=== PATIENT | male | born 1965 | race Caucasian/White ===

== ENCOUNTER 2017-10-15 14:17 | Inpatient (IN) ==
[2017-10-15] MEDS ORDERED: METHOCARBAMOL 1,000 MG/10 ML VIAL IV ONE (14:27)
[2017-10-15] MEDS ORDERED: KETOROLAC 30 MG/ML VIAL IV ONE (14:27)
[2017-10-15] MEDS ORDERED: MEPERIDINE 25 MG/ML SYRINGE IV ONE (15:21)
--- NOTE | 2017-10-15 15:21 | Emergency Department Note ---
Back Pain HPI - General Chief Complaint: Back Pain/Injury Stated Complaint: back pain no injury Time Seen by Provider: 10/15/17 14:27 Source: patient - History of Present Illness HPI Narrative: 52-year-old male presents with severe low back pain. Onset is chronic however much worse since yesterday. He has had multiple back surgeries in the past and deals with chronic pain. However states he is never had this severe of pain. The pain radiates down his right leg. He also on occasion feels a little bit of tingling down his right leg but states it is mostly just pain. No incontinence or bowel or bladder. No change in bowel or bladder. No saddle paresthesia. No fever chills. No nausea, vomiting, or diarrhea. He denies any fall, trauma, or injury. States yesterday he sat and watched all day long and then did some pressure washing when he got home and he thinks he overdid it. This morning when he got up his pain was severe but he went to work and now cannot walk or function whatsoever at work so they called the ambulance. He did receive 100 mcgs of fentanyl in the field which provided him extremely minimal pain relief. States on occasion standing seems to relieve this a little bit of his pain possibly but if he moves the wrong way or tries to lift the right leg his pain is severe. His last surgery was in [address] Roman. He has known bulging disks since then. - Related Data Home Medications Medication Instructions Recorded Confirmed aspirin 81 mg tablet,delayed 81 mg PO QDAY 06/06/15 10/15/17 release multivitamin capsule 1 tab-cap PO QDAY 06/06/15 10/15/17 omega-3 fatty acids-fish oil 360 1 cap PO BID 06/06/15 10/15/17 mg-1,200 mg capsule Gabapentin [Neurontin] 300 mg PO DAILY 10/15/17 10/15/17 Previous Rx's Medication Instructions Recorded fluticasone 50 mcg/actuation nasal 100 mcg INTRANASAL BID #16 g 09/21/16 spray,suspension losartan 50 mg tablet 50 mg PO QDAY #90 tab 09/21/16 omeprazole 20 mg capsule,delayed 20 mg PO .COMPLEX #90 cap 10/07/17 release Hydrocodone/APAP 7.5/325Mg [[place] 1 - 2 tab PO Q6HP PRN #20 tab 10/15/17 7.5-325Mg] Methocarbamol [Robaxin-750] 750 mg PO TID PRN #30 tab 10/15/17 Allergies Allergy/AdvReac Type Severity Reaction Status Date / Time Sulfa (Sulfonamide Allergy Unknown Hives Verified 10/15/17 14:21 Antibiotics) Review of Systems All systems ED: reviewed and negative except as stated. 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 Denies: coronary artery disease, thyroid disease - Social History smoking status: Never smoker Alcohol use: Reports: Occasionally Drug use: Reports: none Physical Exam Limitations: no limitations General appearance: alert, other (Appears in pain) Head: atraumatic, normocephalic, normal inspection Eye: Present: normal appearance. Absent: conjunctival injection ENT: mucous membranes moist Neck: Present: normal inspection, trachea midline. Absent: tenderness, lymphadenopathy Chest: Present: normal inspection, symmetric chest wall rise Respiratory: Present: normal lung sounds bilaterally. Absent: respiratory distress, wheezes, accessory muscle use Cardiovascular: Present: regular rate, normal heart sounds Abdominal: Present: soft, normal bowel sounds. Absent: distention, tenderness, guarding Extremities: Present: normal inspection, normal capillary refill. Absent: full ROM (Limited range of motion of the right lower extremity with), pedal edema Back: Present: vertebral tenderness (Tenderness with palpation midline L1 through L5 as well as over the right sciatic notch), sciatic notch tenderness (R ), straight leg raise (R). Absent: CVA tenderness (R), CVA tenderness (L) Neurological: Present: alert, oriented X3. Absent: motor sensory deficit Psychiatric: Present: normal affect, normal mood Skin: Present: warm, dry, intact, normal color Course Course Narrative: Patient has received multiple doses of various narcotic pain medications, muscle relaxers and steroid with little improvement. We are going to try to discharge him home with some pain medication and muscle relaxers however patient states he actually cannot walk due to the pain and cannot function her go home. I did speak with Dr. Ruiz hospitalist who agrees to admit the patient observation and try and get his pain under control. Vital Signs Temperature 98.3 F 10/15/17 14:18 Pulse Rate 65 10/15/17 14:18 Respiratory Rate 16 10/15/17 14:18 Blood Pressure 144/80 10/15/17 14:18 Pulse Oximetry (%) 94 10/15/17 14:18 Temperature 98.3 F 10/15/17 14:18 Pulse Rate 66 10/15/17 19:04 Respiratory Rate 18 10/15/17 18:04 Blood Pressure 138/76 10/15/17 19:01 Pulse Oximetry (%) 100 10/15/17 19:04 Disposition Pt seen by LINE INSPECTOR/PA only: No Clinical Impression: Exacerbation of chronic back pain Disposition: Xfer As Outpt/Obs ([facility]) Condition: Fair Instructions: Chronic Back Pain (ED) Additional Instructions: A physical therapy prescription has been completed for you. Call physical therapist of your choice and follow-up with him as soon as possible. Take the prescription with you. Robaxin: 1 tab orally every 8 hours as needed for muscle spasm. Hydrocodone: 1 tab orally every 6 hours as needed for pain. Do not drive, operate machinery, or drink alcohol while taking this medication. Alternate heat and ice to the affected area 4-6 times a day for 15 minutes at a time over the next 2 days. Follow-up with your primary care provider or orthopedic provider within the next few days for follow-up. Prescriptions: Hydrocodone/APAP 7.5/325Mg [[place] 7.5-325Mg] 1 - 2 tab PO Q6HP PRN #20 tab PRN Reason: Pain Methocarbamol [Robaxin-750] 750 mg PO TID PRN #30 tab PRN Reason: Muscle Spasm Referrals: Elijah Kirby MD [Primary Care Provider] - Lauro Roman MD [Physician] -
[2017-10-15] MEDS ORDERED: HYDROCODONE/APAP 7.5/325MG TABLET PO ONE ×2 (16:10)
[2017-10-15] MEDS ORDERED: CYCLOBENZAPRINE 10 MG TABLET PO ONE ×2 (16:10→16:11)
[2017-10-15] MEDS: fentaNYL 100 MCG/2 ML VIAL IV PRN ×4 (17:28→23:33)
--- NOTE | 2017-10-15 18:07 | Cat Scan Report ---
CLINICAL INFORMATION: History of L4-5 anterior/posterior fusion chronic back pain COMPARISON: Postoperative lumbar MRI from 08/24/2015 TECHNIQUE: 0.625 mm helical slices were obtained from the mid T12 through mid S2 vertebral bodies. Following reconstruction, 2.5 mm coronal, sagittal, and axial reformations (angle to the disc spaces) were processed. Exam was reviewed at bone and soft tissue windows.The exam was performed using radiation dose optimization techniques including, but not limited to, automated exposure control, adjustment of the mA and/or kV according to patient size and use of iterative reconstruction technique. FINDINGS: 4 mm L4 anterior subluxation is unchanged. L4-5 anterior/posterior fusion changes provided by interbody graft, pedicle screws and short interbody struts with wide laminectomy changes seen as before. Remaining lumbar is anatomically aligned without significant osseous abnormalities. Soft tissues are normal. The T10-11 through L1-2 disc levels are normal. At L2-3, mild broad disc protrusion with facet arthropathy result in mild central canal and bilateral IV foraminal stenosis. At L3-4, moderate broad disc spur complex and facet arthropathy results in mild central canal and moderate bilateral lateral recess/ IV foraminal narrowing slightly impinging the exiting L3 and descending L4 nerve roots. At L4-5 fusion level, there is moderate granulation tissue in the former region of the lamina and in the posterior epidural space. The central canal, lateral recess and IV foramen are normal width. At L5-S1 the disc levels normal IMPRESSION: L3-4: Moderate broad disc protrusion and facet arthropathy resulting in mild central canal and moderate bilateral lateral recess and IV foraminal narrowing with impingement of the exiting L3 descending L4 nerve roots. L4-5: Anterior/posterior fusion changes with 3 mm of residual L4 anterior subluxation. Mild granulation tissue in the former region of the lamina the posterior epidural space. Interpreted and Authenticated by: Azar Robertson 10/15/17
[2017-10-15] MEDS ORDERED: DEXAMETHASONE 10 MG/ML VIAL IV ONE (19:14)
[2017-10-15] MEDS ORDERED: DIAZEPAM 5 MG/ML VIAL ONE (20:53)
[2017-10-15] MEDS ORDERED: DIAZEPAM 5 MG TABLET PO ONE (21:01)
--- NOTE | 2017-10-15 21:28 | Internal Med History&Physical ---
Medical - H&P: HPI Patient information: Note initiated : 10/15/17 at 9:18 pm Service Date, if different from initiated Date: [] Patient: Asa Green a 52 y/o M admitted on for back pain no injury. Chief Complaint: Acute worsening of chronic back pain due to disc herniation with radicular symptoms. History of present illness: Mr. Green is a 52 year old M with history of lumbar spine fusion 2004 with recurrent pain since 2014. He's tried PT, massage, epidural injections, chiropractic, and is followed in the pain clinic. Sustained sitting makes problems worse, sustained walking, the same. Has a road trip coming up, and he drove to [place] 4 days ago as a trial of sort to see if he could manage the trip. 3 days ago he spent the day watching baseball games, a little stiff when he got home, then did yardwork the evening 2 days ago. He woke up feeling tight the next morning, didn't rest particularly well. 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 Any wrong motion evokes a "grabbing" localized pain in his back and sometimes increases the burning down his leg. EMS eventually called and brought him to the ED from work. He denies any bowel or bladder dysfunction, both incontinence and retention. Notes his right leg is worse, feels numb, particularly down buttock and then to the top of his right foot. Notes it often gets that way if he stands for too long as well. Left leg with area of sensory deficit around kneecap. Denies specific motor weakness, but notes hard to tell right now because it hurts too much to move either leg, or even shift his body. He notes that warmth usually more helpful with symptoms than ice. No fevers, no chills. Denies any other symptoms. Review of systems: 1) Evaluation for palpitations about a year ago, found eventually to be due to nortryptilline, subsequently discontinued, no symptoms since. 2) Rash on foot - ? fungal 3) Allergic rhinitis at times 4) GERD, h/o normal EGD. 5) Otherwise, on complete review, all others negative. Medical - H&P: PMH Medical history: Lumbar disc herniation with radiculopathy Hypertension (Chronic) Sinusitis with nasal polyps (Chronic) Migraine (Chronic) Irritable bowel syndrome (Chronic) Hyperlipidemia (Chronic) treated at one time with zetia, now on fish oil and niacin Bronchitis, acute (Resolved) Cholecystitis (Resolved) with gall bladder polyps Surgical history: History of undescended testicle (Chronic) Age 14 testicular torsion - orchiectomy Status post lumbar spinal fusion (Chronic) 2004 25 years after back injury in football - spondylolisthesis History of colonoscopy (Chronic 08/26/14) Dr. Quarles Pertinent family history: Mother alive with COPD and osteoarthritis Father with CAD, paternal grandparents also with CAD Social history: Lives with , 2 children (16 and 20), 2 dogs, 3 cats. Lifelong non-smoker, no alcohol, no recreational drugs, works in [employer]. Functional capacity: independent ambulation Smoking status: Never smoker Drug use: none Alcohol use: none Medical - H&P: Meds Home Medications Medication Instructions Recorded Confirmed Type aspirin 81 mg tablet,delayed 81 mg PO QDAY 06/06/15 10/15/17 History release multivitamin capsule 1 tab-cap PO QDAY 06/06/15 10/15/17 History omega-3 fatty acids-fish oil 360 1 cap PO BID 06/06/15 10/15/17 History mg-1,200 mg capsule fluticasone 50 mcg/actuation nasal 100 mcg INTRANASAL BID #16 g 09/21/16 Rx spray,suspension losartan 50 mg tablet 50 mg PO QDAY #90 tab 09/21/16 10/15/17 Rx omeprazole 20 mg capsule,delayed 20 mg PO .COMPLEX #90 cap 10/07/17 10/15/17 Rx release Gabapentin [Neurontin] 300 mg PO DAILY 10/15/17 10/15/17 History Hydrocodone/APAP 7.5/325Mg [[place] 1 - 2 tab PO Q6HP PRN #20 tab 10/15/17 Rx 7.5-325Mg] Methocarbamol [Robaxin-750] 750 mg PO TID PRN #30 tab 10/15/17 Rx Allergies Allergy/AdvReac Type Severity Reaction Status Date / Time Sulfa (Sulfonamide Allergy Unknown Hives Verified 10/15/17 14:21 Antibiotics) Medical - H&P: Exam - Constitutional Vitals: Temp Pulse Resp BP Pulse Ox 98.3 F 92 H 18 147/95 87 L 10/15/17 14:18 10/15/17 20:46 10/15/17 18:04 10/15/17 20:46 10/15/17 20:46 - Other Additional findings: GENERAL: Clearly uncomfortable with visible distress with any movement of legs or shift in torso. Lying on gurney in ED on back board (which he notes feels better - expresses concern about hospital bed being "too soft") Alert, oriented. Speech coherent, fluent, articulate. Thought content appropriate. Respirations unlabored. Appears quite stoic. HEENT: Atraumatic, normocephalic; EYES: pupils equal and reactive to light, full range of extraocular movements, no scleral icterus, no injected vessels. EARS: TM's pearly brock and translucent, EAC's without cerumen or trauma, auricles without lesions. OROPHARYNX: Lummi dentition with previous restorative dental work. Palate raise symmetric. No posterior erythema. Membranes moist. NECK: Trachea midline, no adenopathy, no JVD, no bruits. LUNGS: Clear to bases bilaterally. COR: Regular rate and rhythm, no murmurs, rubs, gallops. ABDOMEN: Cautious exam as increases discomfort in back. Bowel sounds present and normal, non-distended, soft, non-tender. BACK: Unable to visibly inspect back as pain uncontrolled when he shifts or tries to roll one way or the other. Really unable to attempt to sit. Palpation accomplished with significant muscle spasm right>>left. No defect palpated. Areas of tenderness in lower lumbar area bilaterally. EXTREMITIES: No edema, pulses x4, warm. No palpable cords, no nailbed cyanosis. SKIN: Well marginated areas of erythema and peeling on feet with some scale noted at ankles. Sunburn left ankle, lateral aspect. NEURO: Babinski downgoing. Able to plantar flex and dorsiflex great toe and feet , but unable to fully test strength due to increase in pain with attempts. Straight leg raises did not evoke radicular symptoms or radiation of pain, but did markedly increase pain in lower back. Hamstrings very tight. Could not obtain adequate relaxation to reliably check reflexes. Medical - H&P: Reslt - Imaging and Cardiology CT back Additional comments: READ BY RADIOLOGIST: CLINICAL INFORMATION: History of L4-5 anterior/posterior fusion chronic back pain COMPARISON: Postoperative lumbar MRI from 08/24/2015 TECHNIQUE: 0.625 mm helical slices were obtained from the mid T12 through mid S2 vertebral bodies. Following reconstruction, 2.5 mm coronal, sagittal, and axial reformations (angle to the disc spaces) were processed. Exam was reviewed at bone and soft tissue windows.The exam was performed using radiation dose optimization techniques including, but not limited to, automated exposure control, adjustment of the mA and/or kV according to patient size and use of iterative reconstruction technique. FINDINGS: 4 mm L4 anterior subluxation is unchanged. L4-5 anterior/posterior fusion changes provided by interbody graft, pedicle screws and short interbody struts with wide laminectomy changes seen as before. Remaining lumbar is anatomically aligned without significant osseous abnormalities. Soft tissues are normal. The T10-11 through L1-2 disc levels are normal. At L2-3, mild broad disc protrusion with facet arthropathy result in mild central canal and bilateral IV foraminal stenosis. At L3-4, moderate broad disc spur complex and facet arthropathy results in mild central canal and moderate bilateral lateral recess/ IV foraminal narrowing slightly impinging the exiting L3 and descending L4 nerve roots. At L4-5 fusion level, there is moderate granulation tissue in the former region of the lamina and in the posterior epidural space. The central canal, lateral recess and IV foramen are normal width. At L5-S1 the disc levels normal IMPRESSION: L3-4: Moderate broad disc protrusion and facet arthropathy resulting in mild central canal and moderate bilateral lateral recess and IV foraminal narrowing with impingement of the exiting L3 descending L4 nerve roots. L4-5: Anterior/posterior fusion changes with 3 mm of residual L4 anterior subluxation. Mild granulation tissue in the former region of the lamina the posterior epidural space. Interpreted and Authenticated by: Azar Robertson 10/15/17 Medical - H&P: A/P - Narrative A/P Narrative: 1) Intractable lumbar back pain with muscle spasm, disc herniation, and associated radicular symptoms right > left. He has been given Fentanyl in the ED, but he cannot say that it has worked. States if he lies still, he can be comfortable, he just can't move - and each time he has gotten an injection, it has not helped him be able to move. Neuro exam incomplete due to limitations of pain, will need to repeat when pain better controlled. Muscle spasm is palpable, and his hamstrings are quite tight. He expresses concerns about admission, particularly moving onto a bed, having to undress, and fears of the bed being too soft and that he will wake in more pain. Opted to give IV Valium in the ED to assist with muscle spasm relief before he gets to the floor. Will need PT, continue opioids (also received single dose Toradol in ED), try burst prednisone for the localized edema around nerves and disc, cautiously add valium for muscle spasm. Patient well acquainted with Dr. Roman, will try to reach him in the morning even though he is not [employer]. Continuous pulse ox given opioids and benzodiazepines. 2) Hypertension. Will continue his usual antihypertensives. 3) Tinea pedis. Provide Lotrimin cream. May have some psoriasis as well, but the skin areas I could actually see and evaluate are more consistent with Tinea. 4) h/o GERD - with h/o normal EGD. Has been on PPI for years. Although recommendation is that weaning drug be strongly considered, that process would be best undertaken in the primary care setting; acute hospitalization is not the time. No history of GI bleed. 5) Complication prophylaxis - although at low risk for VTE, unclear how long he will actually be minimally mobile. Will use antiembolic stockings. Continue with PPI for PUD prophylaxis given prednisone burst and chronic PPI use. Plan: Observation - will reevaluate and admit to inpatient if inadequate improvement. Regular diet. PT consult Will phone Dr. Roman in the morning. Fentanyl prn Continuous pulse ox PO Valium for muscle spasm, using with caution given concomitant opioids Warmth to back Prednisone burst - 40 mg daily x 5 days Continue antihypertensives. Lotrimin for tinea pedis GAIL danielson Repeat neuro exam when more relaxed Other problems will be addressed as they arise.
[2017-10-15] MEDS ORDERED: predniSONE 20 MG TABLET PO ONE (21:50)
[2017-10-15] MEDS ORDERED: ONDANSETRON 4 MG/2 ML VIAL IV PRN (21:50)
[2017-10-15] MEDS: 0.9 % SODIUM CHLORIDE 10 ML SYRINGE IV SCH (22:35)
[2017-10-15] MEDS: DOCUSATE SODIUM 100 MG CAPSULE PO SCH (22:58)
[2017-10-16] MEDS: fentaNYL 100 MCG/2 ML VIAL IV PRN ×9 (03:43→21:05)
[2017-10-16] MEDS: 0.9 % SODIUM CHLORIDE 10 ML SYRINGE IV SCH ×4 (03:45→21:05)
[2017-10-16 05:14] LABS: Basophils # (Auto) 0 K/mcL (0.0-0.3); Basophils % (Auto) 0 % (0.0-2.0); Eosinophils # (Auto) 0 K/mcL (0.0-0.7); Eosinophils % (Auto) 0.1 % (0.0-7.0); Granulocytes % (Auto) 92.3 % (38.0-78.0); Lymphocytes # (Auto) 0.3 K/mcL (1.5-4.8); Lymphocytes % (Auto) 6.7 % (15.5-49.0); Mean Cell Volume 89.7 fL (80.0-100.0); Mean Corpuscular HGB Conc 34.8 g/dL (31.0-36.0); Mean Corpuscular Hemoglobin 31.2 pg (26.0-34.0); Monocytes # (Auto) 0 K/mcL (0.1-0.9); Monocytes % (Auto) 0.9 % (1.0-12.0); Platelet Count 180 K/mcL (140-440); Red Cell Distribution Width 12.6 % (11.5-14.5)
[2017-10-16 05:44] LABS: Blood Urea Nitrogen 14 mg/dl (6-20)
[2017-10-16] MEDS: DIAZEPAM 5 MG TABLET PO PRN ×4 (05:54→23:42)
[2017-10-16] MEDS ORDERED: MAGNESIUM SULFATE 8.12 MEQ in DEXTROSE 5% IN WATER 50 ML IV ONE (06:40)
[2017-10-16] MEDS: OMEPRAZOLE 20 MG CAPSULE PO SCH (07:04)
[2017-10-16] MEDS ORDERED: MAGNESIUM SULFATE 1 GM/25 ML IV ONE (07:15)
[2017-10-16] MEDS: GABAPENTIN 300 MG CAPSULE PO SCH (09:07)
[2017-10-16] MEDS: predniSONE 20 MG TABLET PO SCH (09:07)
[2017-10-16] MEDS: DOCUSATE SODIUM 100 MG CAPSULE PO SCH ×2 (09:07→21:05)
[2017-10-16] MEDS: ASPIRIN 81 MG TAB.CHEW PO SCH (09:08)
[2017-10-16] MEDS: LOSARTAN 50 MG TABLET PO SCH (09:08)
[2017-10-16] MEDS ORDERED: HYDROcodone/APAP 10/325MG TABLET PO PRN (10:40)
--- NOTE | 2017-10-16 14:13 | Magnetic Resonance Report ---
CLINICAL INFORMATION: Chronic low back pain and bilateral radiculopathy right greater than left. History of L4-5 anterior/posterior fusion and wide laminectomy COMPARISON: Postoperative lumbar MRI 08/24/2015 TECHNIQUE: Sagittal T1 FLAIR, STIR, fast spin echo T2, axial T2 weighted images were acquired. FINDINGS: L4-5 anterior posterior fusion changes provided by interbody body graft, pedicle screws and short interbody struts appreciated. There is two mm of L4 subluxation - as previously seen. The remainder of the lumbar spine is anatomically aligned. Conus medullaris ends at T12 homogeneous signal. Cauda equina roots are normal. No soft tissue abnormalities. The T11-T12, T12-L1, and L1-2 disc levels are normal. At L2-3, mild broad disc protrusion facet arthropathy results in minimal central canal narrowing. At L3-4, large broad disc extrusion and facet arthropathy result in severe bilateral lateral recess and IV foraminal narrowing with impingement of the exiting L3 and the descending L4 nerve roots. Facet arthropathy results in moderate central canal stenosis. There are Modic 1. Degenerative changes in the inferior L3 and superior L4 endplates. All findings have progressed considerably since the previous study At L4-5 surgerized level, there is modest granulation tissue throughout the epidural space which is similar previous study. The L5-S1 disc level is normal IMPRESSION: L3-4: Large broad disc extrusion and facet arthropathy resulting in severe bilateral IV foraminal and lateral recess narrowing impinging the exiting L3 and descending L4 nerve roots. Moderate central canal stenosis L4-5: Anterior/posterior fusion and wide laminectomy changes. Central canal and IV foramen are capacious. Interpreted and Authenticated by: Azar Robertson 10/16/17
--- NOTE | 2017-10-16 14:23 | Internal Med Progress Note ---
Medical - PN: Subj Patient information: Note initiated : 10/16/17 at 1:49 pm Patient: Asa Green 52 y/o M admitted on 10/15/17 for Intractable Lumbar Back Pain with Muscle Spasm. Interval history: Patient very much wants to go home. He was up with physical therapy, but required one person assist to roll over. Nursing staff reported this AM that he remains in pain, Valium seems to help better than Fentanyl. When I am in the room, he is very cautious with moving, and even with a very modified physical exam he experiences times of profound worsening of spasm. No bowel or bladder issues overnight and the areas of numbness have not changed. He stresses several times how he really wants to go home, but any movement causes severe pain. I discussed with Dr. Roman who requests MR emelia Singh and he will see him later. When I disclosed this to the patient, his was in the room and she concurred that it did not appear he was ready to go home. He did seem relieved that I had been able to reach his spine surgeon. Also noted is an elevation in blood glucose. Patient denies history of previous glucose intolerance or diabetes. Notes no previous problems on steroids. - Constitutional Vitals: Vital Signs Temp Pulse Resp BP Pulse Ox 98.1 F 92 H 12 112/65 94 10/16/17 08:17 10/16/17 08:17 10/16/17 08:17 10/16/17 08:17 10/16/17 08:17 Period Temp Pulse Resp BP Sys/[place] Pulse Ox Last 24 Hr 98.1 F-98.3 F 56-94 12-18 112-156/65-97 87-100 Intake and Output 10/15/17 10/16/17 10/16/17 21:59 05:59 13:59 Intake Total 180 / 180 1075 / 1075 Output Total 200 / 200 Balance -20 / -20 1075 / 1075 Weight 210 lb Intake & Output: Intake & Output 10/15/17 10/16/17 10/16/17 21:59 05:59 13:59 Intake Total 180 / 180 1075 / 1075 Output Total 200 / 200 Balance -20 / -20 1075 / 1075 Weight 210 lb Intake: IV 25 / 25 MAGNESIUM SULFATE 1 gm In 25 ml 25 / 25 @ 25 mls/hr IV ONCE ONE Rx#: [id number] Oral 180 / 180 1050 / 1050 Output: Void Amount 200 / 200 Other: Meal Breakfast Percent of Meal Consumed 100% Feeding Ability Total Assistance # Voids 1 Exam: GENERAL: Continues with obvious discomfort. Any movement is done extremely cautiously and really unable to move of his oblique left side for thorough exam. Clearly uncomfortable with visible distress with any movement of legs or shift in torso. Still on gurney from ED on back board (which he notes feels better - expresses concern about hospital bed being "too soft") Alert, oriented. Speech coherent, fluent, articulate. Thought content appropriate. Respirations unlabored. Appears quite stoic. LUNGS: Clear to bases bilaterally. COR: Regular rate and rhythm, no murmurs, rubs, gallops. ABDOMEN: Nondistended in contour. BACK: He is lying on left side side of back at oblique angle. Tried to turn 15 degrees farther to left for visual inspection and he experienced marked increase in discomfort. On palpation, no bony tenderness noted, and spasm does seem improved on palpation. Unable to do much more as far as exam. Really unable to attempt to sit with my assistance alone. Had been up with PT earlier. Unable to accomplish straight leg raises. EXTREMITIES: No edema, pulses x4, warm. No palpable cords, no nailbed cyanosis. NEURO: Babinski downgoing. Able to plantar flex and dorsiflex great toe and feet , strength intact and equal today. Straight leg raises were not accomplished due to inability to shift onto back. Medical - PN: Obj Da - Labs CBC & Chem 7: 10/16/17 03:45 10/16/17 03:45 Labs: Abnormal Lab Results 10/16/17 10/16/17 03:45 03:45 Gran % 92.3 H Lymph % (Auto) 6.7 L [place] % (Auto) 0.9 L Lymph # (Auto) 0.3 L [place] # (Auto) 0 L Glucose 202 H Meds: Medications Hydrocodone Bitart/Acetaminophen ([place] 10/325mg) 1 tab PO Q4HP PRN PRN Reason: PAIN LEVEL 3-6 Aspirin (Aspirin) 81 mg PO DAILY [facility] Last Admin: 10/16/17 09:08 Dose: 81 mg Diazepam (Valium) 5 mg PO TIDP PRN PRN Reason: Muscle Spasm Last Admin: 10/16/17 11:15 Dose: 5 mg Docusate Sodium (Colace) 100 mg PO BID [facility] Last Admin: 10/16/17 09:07 Dose: 100 mg Fentanyl (Sublimaze) 25 mcg IV Q1HP PRN PRN Reason: Pain uncontrolled with po Last Admin: 10/16/17 12:55 Dose: 25 mcg Fluticasone Propionate (Flonase) 1 spray NS BID [facility] Gabapentin (Neurontin) 300 mg PO DAILY [facility] Last Admin: 10/16/17 09:07 Dose: 300 mg Losartan Potassium (Cozaar) 50 mg PO QDAY [facility] Last Admin: 10/16/17 09:08 Dose: 50 mg Omeprazole (Prilosec) 20 mg PO QAMAC [facility] Last Admin: 10/16/17 07:04 Dose: 20 mg Ondansetron HCl (Zofran) 4 mg IV Q6HP PRN PRN Reason: Nausea And Vomiting [facility] Last Admin: 10/16/17 09:07 Dose: 40 mg Sodium Chloride (Saline Flush) 10 ml IV Q8 [facility] Last Admin: 10/16/17 13:00 Dose: 10 ml - Imaging and cardiology MRI - L spine Additional comments: As read by Dr. Robertson: FINDINGS: L4-5 anterior posterior fusion changes provided by interbody body graft, pedicle screws and short interbody struts appreciated. There is two mm of L4 subluxation - as previously seen. The remainder of the lumbar spine is anatomically aligned. Conus medullaris ends at T12 homogeneous signal. Cauda equina roots are normal. No soft tissue abnormalities. The T11-T12, T12-L1, and L1-2 disc levels are normal. At L2-3, mild broad disc protrusion facet arthropathy results in minimal central canal narrowing. At L3-4, large broad disc extrusion and facet arthropathy result in severe bilateral lateral recess and IV foraminal narrowing with impingement of the exiting L3 and the descending L4 nerve roots. Facet arthropathy results in moderate central canal stenosis. There are Modic 1. Degenerative changes in the inferior L3 and superior L4 endplates. All findings have progressed considerably since the previous study At L4-5 surgerized level, there is modest granulation tissue throughout the epidural space which is similar previous study. The L5-S1 disc level is normal IMPRESSION: L3-4: Large broad disc extrusion and facet arthropathy resulting in severe bilateral IV foraminal and lateral recess narrowing impinging the exiting L3 and descending L4 nerve roots. Moderate central canal stenosis L4-5: Anterior/posterior fusion and wide laminectomy changes. Central canal and IV foramen are capacious. Medical - PN: A/P - Time Spent With Patient Total time spent: discussion with nursing and Dr. Roman 12 minutes, time with patient 15 minutes. - Narrative A/P Narrative: 1) Intractable lumbar back pain with muscle spasm, disc herniation, and associated radicular symptoms right > left. MR with findings L3-4 which are likely responsible for present symptoms. Still very unable to move, and both his and I express a fear that even if he makes it into a car here, he will be unable to get out of the car at home. Will continue Valium, switch to oral opioids, continue PT, await Dr. Roman's advice. Continue prednisone, again explained to patient it does nothing for disc herniation, the expectation is that it may help decrease surrounding edema and inflammation, but sometimes even that is questionable. Will not be going home today, however, after discussion with Dr. Roman, if better, he may be able to discharge in AM - if not, will roll to inpatient and surgical intervention may be a possibility. Dr Roman also added CRP and sed rate to offer further reassurance of no infection. 2) Elevated glucose. Likely secondary to prednisone, however may be unmasking underlying glucose intolerance or undiagnosed diabetes. Will check fingersticks , only cover if greater than 200, obtain Hgb A1C (if this strongly suggests diabetes, will get educator involved.) 2) Hypertension. Will continue his usual antihypertensives. 3) Tinea pedis. Lotrimin ordered. 4) h/o GERD - with h/o normal EGD. Has been on PPI for years. Although recommendation is that weaning drug be strongly considered, that process would be best undertaken in the primary care setting; acute hospitalization is not the time. No history of GI bleed. 5) Complication prophylaxis - although at low risk for VTE, unclear how long he will actually be minimally mobile. Will use antiembolic stockings. Continue with PPI for PUD prophylaxis given prednisone burst and chronic PPI use.
[2017-10-16] MEDS ORDERED: DEXTROSE 31 GM ORAL.SUSP PO PRN (17:14)
[2017-10-16] MEDS ORDERED: DEXTROSE 50% 50 ML VIAL IV PRN (17:14)
[2017-10-16] MEDS: HYDROcodone/APAP 10/325MG TABLET PO PRN ×2 (18:59→23:42)
[2017-10-16 21:09] LABS: Hemoglobin A1C 5.5 % HGB (4.0-6.0)
[2017-10-16] MEDS: INSULIN LISPRO 1 UNIT/0.01 ML UNIT SQ SCH (21:11)
[2017-10-16] MEDS: CLOTRIMAZOLE CRM 1% 1 DOSE TUBE TOPICAL SCH (21:13)
--- NOTE | 2017-10-17 01:05 | Consultation ---
DATE OF CONSULTATION: 10/16/2017 IDENTIFICATION: The patient is a 52-year-old male. CHIEF COMPLAINT: That of intractable back and right lower extremity radicular pain. HISTORY: This gentleman had a previous lumbar fusion in 2004. He has had some ongoing symptoms since 2014 of increased back pain and some right lower extremity radiculopathy. He has managed intermittently with physical therapy, epidural injections, chiropractic, massage, etc. Here over the last week he had developed acute onset of increased back pain and radiculopathy. Saturday he went to work, had several episodes of excruciating grabbing pain across the back that radiated into the right lower extremity. He presented to [facility] emergency room, ultimately returned and was admitted for pain. He presently complains of spasming low back pain associated with any amount of movement. He does get pain that radiates into his right buttock and down the right lower extremity. He denies symptoms of bowel and bladder dysfunction. He presently has no constitutional symptoms such as fever or chills. PAST MEDICAL HISTORY: Really fairly unremarkable. Does have a history of hypertension. REVIEW OF SYSTEMS: Balance of 10-point review of systems is negative. FAMILY HISTORY: Father with coronary artery disease. Mother with COPD, otherwise noncontributory to this present problem. SOCIAL HISTORY: He is . He works multimedia journalist for a local [employer] and lives with his and children. He does not drink alcohol, does not smoke. MEDICATIONS: Aspirin. Fluticasone intranasal. Losartan. ALLERGIES: SULFA MEDICATIONS which produces hives. PHYSICAL EXAMINATION: GENERAL: He is awake and alert, generally resting comfortably when I entered the room. He has normal mentation and carries on appropriately. Intermittently throughout the exam, though, he does appear to be in a fair amount of discomfort, does not appear to have any manifestations of [place] findings. HEENT: Head normocephalic, atraumatic. Eyes PERRLA. Conjunctivae clear. ENT within normal limits. NECK: Supple without pain or range of motions. HEART: Regular. LUNGS: Clear. ABDOMEN: Nontender. BACK: Rolling to inspect his back produces acute spasming type of pain. His back shows no deformity. There is no increased warmth, redness or masses. EXTREMITIES: His lower extremities are well perfused. There is no lower extremity deformity. He has no significant edema bilaterally. He does have some vaguely altered sensation, right lower extremity, roughly in the L4 dermatome. He has some vague tibialis anterior weakness and potential quad weakness. His MRI scan demonstrates a fusion at what would be likely called L4-5. Below this, he has unsegmented level. Above this he has an intensely reactive disc space with reactive endplate changes. There is edema throughout. There is what appears to be granulation type of material with what appears to be some potentially herniated material in the lateral recess at this L3-4 level. There is significant stenosis centrally, but also really quite impressive stenosis into the neural foramen secondary to a combination of loss of disc height, disc material herniated into the neural foramen, and facet hypertrophy. IMPRESSION: Acute onset of back pain. The patient has had this for over the past several years and generally his low back pain has been manageable. However, this most acute event is intractable and is associated with not only back pain but radiculopathy. I do think it is important to rule out a discitis as his MRI scan is likely secondary to progressive degenerative changes, but certainly could be explained by a discitis. We will obtain a sedimentation rate and a C-reactive protein. I think ultimately he will require a decompression and fusion at this level. This decompression alone I think would not be adequate in that it would require removal of almost the entire right facet joint to obtain an adequate decompression. This was discussed with the patient. I will see him tomorrow after he has had the sedimentation rate and CRP and after he has had another day of pain management. GDD:aris Job ID: [id number] Doc ID: [id number] Lauro Roman MD
[2017-10-17] MEDS: HYDROcodone/APAP 10/325MG TABLET PO PRN ×5 (03:26→21:07)
[2017-10-17 05:27] LABS: CRP,High Sensitivity 1.4 mg/L (1.0-3.0)
[2017-10-17] MEDS: 0.9 % SODIUM CHLORIDE 10 ML SYRINGE IV SCH ×3 (06:00→21:07)
[2017-10-17] MEDS: OMEPRAZOLE 20 MG CAPSULE PO SCH (07:18)
[2017-10-17] MEDS: DIAZEPAM 5 MG TABLET PO PRN ×5 (07:18→23:02)
[2017-10-17] MEDS: INSULIN LISPRO 1 UNIT/0.01 ML UNIT SQ SCH (07:20)
[2017-10-17] MEDS: DOCUSATE SODIUM 100 MG CAPSULE PO SCH ×2 (09:06→21:07)
[2017-10-17] MEDS: LOSARTAN 50 MG TABLET PO SCH (09:06)
[2017-10-17] MEDS: predniSONE 20 MG TABLET PO SCH (09:06)
[2017-10-17] MEDS: ASPIRIN 81 MG TAB.CHEW PO SCH (09:06)
[2017-10-17] MEDS: CLOTRIMAZOLE CRM 1% 1 DOSE TUBE TOPICAL SCH ×3 (09:07→21:07)
[2017-10-17] MEDS: GABAPENTIN 300 MG CAPSULE PO SCH (09:07)
[2017-10-17] MEDS: FLUTICASONE PROPIONATE SPRAY.NAS NS SCH ×3 (09:53→21:07)
--- NOTE | 2017-10-17 11:44 | Internal Med Progress Note ---
Medical - PN: Subj Patient information: Note initiated : 10/17/17 at 11:40 am Patient: Asa Green 52 y/o M admitted on 10/15/17 for Intractable Lumbar Back Pain with Muscle Spasm. Interval history: Patient had a better night; was up and then rolled to one side at night with immediate onset of spasm. Valium has been helping him, staff notes that he did develop some bradycardia into the 40's, was totally asymptomatic, only gave him 5 mg next dose. Has been using oral hydrocodone as well. Was up with PT, walked in [place], then onset of severe symptoms shortly thereafter. Wants to go home, but symptoms very variable. I discussed plan with Dr. Roman, who will be in to see patient later and will make some phone calls regarding timing of definitive plan. No urinary issues, unable to sit or even recline in bed to eat ; is feeding him lying down. - Constitutional Vitals: Vital Signs Temp Pulse Resp BP Pulse Ox 98.5 F 63 12 127/86 98 10/17/17 07:13 10/17/17 07:13 10/17/17 07:13 10/17/17 07:13 10/17/17 07:13 Period Temp Pulse Resp BP Sys/[place] Pulse Ox Last 24 Hr 97.5 F-98.8 F 58-83 12-18 126-141/67-88 94-98 Intake and Output 10/16/17 10/17/17 10/17/17 21:59 05:59 13:59 Intake Total 1645 / 1645 200 / 200 100 / 100 Output Total 550 / 550 Balance 1095 / 1095 200 / 200 100 / 100 Intake & Output: Intake & Output 10/16/17 10/17/17 10/17/17 21:59 05:59 13:59 Intake Total 1645 / 1645 200 / 200 100 / 100 Output Total 550 / 550 Balance 1095 / 1095 200 / 200 100 / 100 Intake: Oral 1645 / 1645 200 / 200 100 / 100 Output: Void Amount 550 / 550 Other: Meal Dinner Percent of Meal Consumed 100% Feeding Ability Independent # Voids 1 Exam: GENERAL: Lying flat on back. Was finally able to get undressed and into hospital gown. Alert, oriented. Speech coherent, fluent, articulate. Thought content appropriate. Respirations unlabored. Appears quite stoic. LUNGS: Clear to bases bilaterally. COR: Regular rate and rhythm, no murmurs, rubs, gallops. ABDOMEN: Nondistended in contour. BACK: I did not move him to do back exam today; reports continued grabbing spasm pain in the lower back - exacerbates significantly if he "moves wrong." EXTREMITIES: No edema, pulses x4, warm. No palpable cords, no nailbed cyanosis. LABS: CRP 1.4, ESR 4 Glucose accuchecks have been in low 100's Medical - PN: Obj Da - Labs CBC & Chem 7: 10/16/17 03:45 10/16/17 03:45 Labs: Abnormal Lab Results 10/16/17 10/16/17 03:45 03:45 Gran % 92.3 H Lymph % (Auto) 6.7 L [place] % (Auto) 0.9 L Lymph # (Auto) 0.3 L [place] # (Auto) 0 L Glucose 202 H Meds: Medications Hydrocodone Bitart/Acetaminophen ([place] 10/325mg) 1 - 2 tab PO Q4HP PRN PRN Reason: PAIN LEVEL 3-6 Last Admin: 10/17/17 07:19 Dose: 1 tab Aspirin (Aspirin) 81 mg PO DAILY [facility] Last Admin: 10/17/17 09:06 Dose: 81 mg Clotrimazole (Mycelex Crm 1%) 1 dose TOPICAL TID [facility] Last Admin: 10/17/17 09:07 Dose: 1 dose Diazepam (Valium) 5 - 10 mg PO Q6HP PRN PRN Reason: Back Spasms Last Admin: 10/17/17 09:05 Dose: 5 mg Docusate Sodium (Colace) 100 mg PO BID [facility] Last Admin: 10/17/17 09:06 Dose: 100 mg Fentanyl (Sublimaze) 25 mcg IV Q1HP PRN PRN Reason: Pain uncontrolled with po Last Admin: 10/16/17 21:05 Dose: 25 mcg Fluticasone Propionate (Flonase) 1 spray NS BID [facility] Last Admin: 10/17/17 11:13 Dose: Not Given Gabapentin (Neurontin) 300 mg PO DAILY [facility] Last Admin: 10/17/17 09:07 Dose: 300 mg Losartan Potassium (Cozaar) 50 mg PO QDAY [facility] Last Admin: 10/17/17 09:06 Dose: 50 mg Omeprazole (Prilosec) 20 mg PO QACOX [facility] Last Admin: 10/17/17 07:18 Dose: 20 mg Ondansetron HCl (Zofran) 4 mg IV Q6HP PRN PRN Reason: Nausea And Vomiting Prednisone (Prednisone) 40 mg PO QAC [facility] Last Admin: 10/17/17 09:06 Dose: 40 mg Sodium Chloride (Saline Flush) 10 ml IV Q8 [facility] Last Admin: 10/17/17 06:00 Dose: 10 ml Medical - PN: A/P - Time Spent With Patient Total time spent is greater than 50% in coordination of care (as documented) at patient's floor/unit and/or counseling patient: 15 - 24 minutes - Narrative A/P Narrative: 1) Intractable lumbar back pain with muscle spasm, disc herniation, and associated radicular symptoms right > left. Lab work reassuring re no infectious etiology for exacerbation of symptoms. Discussed with Dr. Roman via phone - he will be in to see patient later. Consideration re timing of surgical intervention. Patient states he will make phone calls to the insurance company as his company is self-insured and his boss is actually in a meeting today with the insurance company. Have relayed to patient they will cover what he needs. Continue with Valium and oral hydrocodone. If staying here for surgery , will roll to inpatient, if discharging, will do so later. Await Dr. Roman for plan in that regard. 2) Elevated glucose. I think this was due to acute stress reaction when he came in as well as to the initiation of steroid therapy. Reassuring that healing after any surgery will not be complicated by diabetes as we have ruled out occult glucose metabolism issues. Will dc accuchecks. 2) Hypertension. Well controlled on current outpatient medications. Will continue his usual antihypertensives. 3) Tinea pedis. Lotrimin ordered. 4) h/o GERD - with h/o normal EGD. Has been on PPI for years. Although recommendation is that weaning drug be strongly considered, that process would be best undertaken in the primary care setting; acute hospitalization is not the time. No history of GI bleed. 5) Complication prophylaxis - although at low risk for VTE, unclear how long he will actually be minimally mobile. Will use antiembolic stockings. If he will be having surgery, will add SCD's today. Continue with PPI for PUD prophylaxis given prednisone burst and chronic PPI use.
--- NOTE | 2017-10-17 17:32 | Orthopedic Progress Note ---
Subjective Patient information: Note initiated : 10/17/17 at 5:30 pm Service Date, if different from initiated Date: [] Patient: Asa Green 52 y/o M admitted on 10/15/17 for Intractable Lumbar Back Pain with Muscle Spasm. Chief Complaint: [] continues with disabling back and R lower extremity Radicular pain Objective Vital signs: Vital Signs Temp Pulse Pulse Resp BP Pulse Ox 10/17/17 16:00 98.9 F 62 112/75 92 10/17/17 12:00 98.9 F 81 12 147/81 98 10/17/17 07:13 98.5 F 63 12 127/86 98 10/17/17 07:12 98.5 F 70 18 10/17/17 07:00 58 L 14 97 10/17/17 04:00 97.5 F 77 12 130/83 98 10/16/17 23:49 98.5 F 78 16 133/67 97 10/16/17 21:53 96 10/16/17 20:10 97.9 F 77 12 141/88 97 Intake and Output 10/17/17 10/17/17 10/17/17 05:59 13:59 21:59 Intake Total 200 / 200 590 / 590 Balance 200 / 200 590 / 590 Intake: Oral 200 / 200 590 / 590 Other: Meal Lunch Percent of Meal Consumed 100% Feeding Ability Needs Supervision # Voids 1 Intake & Output: Intake & Output 10/17/17 10/17/17 10/17/17 05:59 13:59 21:59 Intake Total 200 / 200 590 / 590 Balance 200 / 200 590 / 590 Intake: Oral 200 / 200 590 / 590 Other: Meal Lunch Percent of Meal Consumed 100% Feeding Ability Needs Supervision # Voids 1 Neurological exam IM: Yes oriented X3 Additional Comments: in bed, any movement produces acute spasms in back and shooting down RLE - Labs CBC & BMP: 10/16/17 03:45 10/16/17 03:45 Labs: 10/16/17 03:45 Hgb 15.3 Hct 44.0 Assessment and Plan (1) Lumbar disc herniation with radiculopathy intractable pain. plan decompression and fusion tomorrow Status: Suspected
[2017-10-18] MEDS: HYDROcodone/APAP 10/325MG TABLET PO PRN ×3 (01:06→21:56)
[2017-10-18] MEDS: 0.9 % SODIUM CHLORIDE 10 ML SYRINGE IV SCH ×3 (06:09→22:04)
[2017-10-18] MEDS: DIAZEPAM 5 MG TABLET PO PRN ×3 (06:09→21:56)
[2017-10-18 06:29] LABS: Appearance,Urine CLEAR; Bacteria,Urine 0 /hpf (0); Bilirubin,Urine NEG (NEG); Color,Urine STRAW; Glucose,Urine (UA) >=500 mg/dL (NEG); Leukocyte Esterase,Urine NEG /uL (NEG); Mucus,Urine FEW /hpf (0); Protein,Urine NEG (NEG); Specific Gravity,Urine 1.007 (1.000-1.035); Urine Blood NEG mg/dL (<0.03); Urine RBC < 1 /hpf (0-1); Urine Squamous Epithelial Cell 0 /hpf (0-4); Urine WBC < 1 /hpf (0-4); Urobilinogen,Urine NEG (NEG)
[2017-10-18] MEDS ORDERED: MINERAL OIL 1 DOSE ENEMA PR ONE (09:52)
--- NOTE | 2017-10-18 10:01 | Internal Med Progress Note ---
Medical - PN: Subj Patient information: Note initiated : 10/18/17 at 9:58 am Service Date, if different from initiated Date: [] Patient: Asa Green 52 y/o M admitted on 10/17/17 for Intractable Lumbar Back Pain with Muscle Spasm. Seen by Dr. Roman in consultation, surgery for lumbar decompression planned for this afternoon. Interval history: Better, still responding to Valium for significant spasm. Up to toilet this AM , expresses concern re no BM since admission. Feels he needs to, unable to have BM yet. He expresses concern as he knows bowels will be even slower postoperatively. Pain manageable, no new symptoms. - Constitutional Vitals: Vital Signs Temp Pulse Resp BP Pulse Ox 98.5 F 62 16 134/91 93 10/18/17 08:30 10/18/17 08:30 10/18/17 08:30 10/18/17 08:30 10/18/17 08:30 Period Temp Pulse Resp BP Sys/[place] Pulse Ox Last 24 Hr 98.3 F-98.9 F 60-82 12-18 112-147/75-91 92-98 Intake and Output 10/17/17 10/18/17 10/18/17 21:59 05:59 13:59 Intake Total 800 / 800 300 / 300 Output Total 1375 / 1375 Balance -575 / -575 300 / 300 Weight 204 lb Intake & Output: Intake & Output 10/17/17 10/18/17 10/18/17 21:59 05:59 13:59 Intake Total 800 / 800 300 / 300 Output Total 1375 / 1375 Balance -575 / -575 300 / 300 Weight 204 lb Intake: Oral 800 / 800 300 / 300 Output: Void Amount 1375 / 1375 Other: # Voids 1 1 Exam: GENERAL: Up in chair. Alert, oriented. Speech coherent, fluent, articulate. Thought content appropriate. Respirations unlabored. Appears comfortable. LUNGS: Clear to bases bilaterally. COR: Regular rate and rhythm, no murmurs, rubs, gallops. ABDOMEN: Nondistended in contour, soft. EXTREMITIES: No edema, pulses x4, warm. No palpable cords, no nailbed cyanosis. Medical - PN: Obj Da - Labs CBC & Chem 7: 10/16/17 03:45 10/16/17 03:45 Labs: Abnormal Lab Results 10/17/17 10/16/17 10/16/17 21:37 03:45 03:45 Gran % 92.3 H Lymph % (Auto) 6.7 L [place] % (Auto) 0.9 L Lymph # (Auto) 0.3 L [place] # (Auto) 0 L Glucose 202 H Urine Glucose (UA) >=500 A Meds: Medications Hydrocodone Bitart/Acetaminophen ([place] 10/325mg) 1 - 2 tab PO Q4HP PRN PRN Reason: PAIN LEVEL 3-6 Last Admin: 10/18/17 06:09 Dose: 2 tab Aspirin (Aspirin) 81 mg PO DAILY [facility] Last Admin: 10/17/17 09:06 Dose: 81 mg Clotrimazole (Mycelex Crm 1%) 1 dose TOPICAL TID [facility] Last Admin: 10/17/17 21:07 Dose: 1 dose Diazepam (Valium) 5 - 10 mg PO Q6HP PRN PRN Reason: Back Spasms Last Admin: 10/18/17 06:09 Dose: 5 mg Docusate Sodium (Colace) 100 mg PO BID [facility] Last Admin: 10/17/17 21:07 Dose: 100 mg Fentanyl (Sublimaze) 25 mcg IV Q1HP PRN PRN Reason: Pain uncontrolled with po Last Admin: 10/16/17 21:05 Dose: 25 mcg Fluticasone Propionate (Flonase) 1 spray NS BID [facility] Last Admin: 10/17/17 21:07 Dose: Not Given Gabapentin (Neurontin) 300 mg PO DAILY [facility] Last Admin: 10/17/17 09:07 Dose: 300 mg Losartan Potassium (Cozaar) 50 mg PO QDAY [facility] Last Admin: 10/17/17 09:06 Dose: 50 mg Omeprazole (Prilosec) 20 mg PO QAMAC [facility] Last Admin: 10/17/17 07:18 Dose: 20 mg Ondansetron HCl (Zofran) 4 mg IV Q6HP PRN PRN Reason: Nausea And Vomiting Prednisone (Prednisone) 40 mg PO QAMCC [facility] Last Admin: 10/17/17 09:06 Dose: 40 mg Sodium Chloride (Saline Flush) 10 ml IV Q8 [facility] Last Admin: 10/18/17 06:09 Dose: 10 ml Medical - PN: A/P - Time Spent With Patient Total time spent is greater than 50% in coordination of care (as documented) at patient's floor/unit and/or counseling patient: 15 - 24 minutes - Narrative A/P Narrative: 1) Intractable lumbar back pain with muscle spasm, disc herniation, and associated radicular symptoms right > left. Lab work reassuring re no infectious etiology for exacerbation of symptoms. Stable with valium + opioid coverage. Surgery today, can use valium IV if needed between now and then, to discuss with pharmacy if need arises; pharmacist aware. 2) Constipation - fleets enema this AM 3) Hypertension. Well controlled on current outpatient medications. Losartan held preoperatively this AM. 4) Tinea pedis. Lotrimin ordered. 5) h/o GERD - with h/o normal EGD. Has been on PPI for years. Although recommendation is that weaning drug be strongly considered, that process would be best undertaken in the primary care setting; acute hospitalization is not the time. No history of GI bleed. 6) Complication prophylaxis - although at low risk for VTE, unclear how long he will actually be minimally mobile. Will use antiembolic stockings. SCD's added. Continue with PPI for PUD prophylaxis given prednisone burst and chronic PPI use.
[2017-10-18] MEDS: FLUTICASONE PROPIONATE SPRAY.NAS NS SCH ×2 (12:29→22:53)
[2017-10-18] MEDS ORDERED: SCOPOLAMINE 1 PATCH PATCH TOPICAL ONE (13:49)
[2017-10-18] MEDS ORDERED: ceFAZolin 1 GM VIAL IV SCH (14:00)
[2017-10-18] MEDS ORDERED: ONDANSETRON 4 MG/2 ML VIAL IV ONE (14:55)
[2017-10-18] MEDS ORDERED: fentaNYL 250 MCG/5 ML VIAL IV ONE (14:55)
[2017-10-18] MEDS ORDERED: SUCCINYLCHOLINE 20 MG/ML ML IV ONE (14:55)
[2017-10-18] MEDS ORDERED: GLYCOPYRROLATE 0.2 MG/ML VIAL IV ONE (14:55)
[2017-10-18] MEDS ORDERED: DEXAMETHASONE 10 MG/ML VIAL IV ONE (14:55)
[2017-10-18] MEDS ORDERED: MIDAZOLAM 5 MG/5 ML VIAL IV ONE (14:55)
[2017-10-18] MEDS ORDERED: TRANEXAMIC ACID 1,000 MG/10 ML VIAL IV ONE (14:55)
[2017-10-18] MEDS ORDERED: LIDOCAINE HCL/PF 100 MG/5 ML SYRINGE IV ONE (14:55)
[2017-10-18] MEDS ORDERED: PROPOFOL 200 MG/20 ML VIAL IV ONE (14:55)
[2017-10-18] MEDS ORDERED: THROMBIN (BOVINE) 5,000 UNIT VIAL TOPICAL ONE ×2 (15:27→16:27)
[2017-10-18] MEDS: GABAPENTIN 300 MG CAPSULE PO SCH (15:28)
[2017-10-18] MEDS: predniSONE 20 MG TABLET PO SCH (15:28)
[2017-10-18] MEDS: ASPIRIN 81 MG TAB.CHEW PO SCH (15:28)
[2017-10-18] MEDS: OMEPRAZOLE 20 MG CAPSULE PO SCH (15:28)
[2017-10-18] MEDS: LOSARTAN 50 MG TABLET PO SCH (15:28)
[2017-10-18] MEDS: DOCUSATE SODIUM 100 MG CAPSULE PO SCH ×2 (15:28→22:53)
[2017-10-18] MEDS ORDERED: KETOROLAC 15 MG/ML VIAL IV PRN (16:59)
[2017-10-18] MEDS ORDERED: METOPROLOL TARTRATE 5 MG/5 ML VIAL IV PRN (16:59)
[2017-10-18] MEDS ORDERED: PROMETHAZINE 25 MG/ML VIAL IV PRN (16:59)
[2017-10-18] MEDS ORDERED: NALOXONE HCL 0.4 MG/ML VIAL IV PRN (16:59)
[2017-10-18] MEDS ORDERED: ePHEDrine 50 MG/ML AMPUL IV PRN (16:59)
[2017-10-18] MEDS ORDERED: IPRATROPIUM/ALBUTEROL 3 ML AMPUL.NEB NEB PRN (16:59)
[2017-10-18] MEDS ORDERED: FLUMAZENIL 0.1 MG/ML ML IV PRN (16:59)
[2017-10-18] MEDS ORDERED: diphenhydrAMINE 50 MG/ML VIAL IV PRN (16:59)
[2017-10-18] MEDS ORDERED: ATROPINE SULFATE 0.4 MG/ML VIAL IV PRN (16:59)
[2017-10-18] MEDS ORDERED: ONDANSETRON 4 MG/2 ML VIAL IV PRN ×2 (16:59→21:46)
[2017-10-18] MEDS ORDERED: ACETAMINOPHEN 1,000 MG/100 ML BOTTLE IV ONE (16:59)
[2017-10-18] MEDS ORDERED: METHOCARBAMOL 1,000 MG/10 ML VIAL IV PRN (16:59)
[2017-10-18] MEDS ORDERED: MEPERIDINE 25 MG/ML SYRINGE IV PRN (16:59)
[2017-10-18] MEDS ORDERED: fentaNYL 100 MCG/2 ML VIAL IV PRN (16:59)
[2017-10-18] MEDS ORDERED: LACTATED RINGERS 1,000 ML IV SCH (17:00)
[2017-10-18] MEDS: CLOTRIMAZOLE CRM 1% 1 DOSE TUBE TOPICAL SCH ×2 (18:31→22:53)
[2017-10-18] MEDS ORDERED: BUPIVACAINE 0.25% 50 ML VIAL IJ ONE (19:56)
--- NOTE | 2017-10-18 20:15 | Brief Operative Note ---
Date of procedure: 10/18/17 Pre-op diagnosis: stenosis with instability Procedure: XLIF WITH POSTERIOR INSTRUMENTATION AND FUSION Grafts/Implants: Yes (NUVASIVE) Anesthesia: GETA Findings: CSF FISTULA Complications: none Surgeon: Lauro Roman Cogeneration Technician: Mary Anne Conn Estimated blood loss (cc): 150 Condition: stable Disposition: PACU
[2017-10-18] MEDS ORDERED: HYDROmorphone PCA 30 MG/30 ML PCA.VIAL IV PRN ×2 (20:25→21:46)
[2017-10-18] MEDS ORDERED: ONDANSETRON ODT 4 MG TABLET SL PRN (21:46)
[2017-10-18] MEDS ORDERED: BENZOCAINE/MENTHOL 1 LOZENGE PO PRN (21:46)
[2017-10-18] MEDS: 0.9 % SODIUM CHLORIDE 1,000 ML IV SCH (21:56)
[2017-10-18] MEDS: fentaNYL 100 MCG/2 ML VIAL IV PRN ×2 (22:10→23:25)
[2017-10-18] MEDS: SENNOSIDES 1 TABLET PO SCH (22:35)
[2017-10-18] MEDS: ceFAZolin 1 GM VIAL IV SCH (22:35)
[2017-10-19] MEDS: DIAZEPAM 5 MG TABLET PO PRN ×2 (00:23→04:45)
[2017-10-19] MEDS: fentaNYL 100 MCG/2 ML VIAL IV PRN (00:35)
[2017-10-19] MEDS: HYDROcodone/APAP 10/325MG TABLET PO PRN ×4 (04:44→20:10)
[2017-10-19] MEDS: ceFAZolin 1 GM VIAL IV SCH ×2 (05:39→19:58)
[2017-10-19] MEDS: 0.9 % SODIUM CHLORIDE 1,000 ML IV SCH ×2 (05:42→14:00)
[2017-10-19] MEDS: 0.9 % SODIUM CHLORIDE 10 ML SYRINGE IV SCH ×3 (05:58→22:04)
[2017-10-19 06:26] LABS: Blood Urea Nitrogen 20 mg/dl (6-20)
[2017-10-19] MEDS ORDERED: MULTIVIT,THER IRON,CA,FA & MIN 1 TABLET PO SCH (09:00)
--- NOTE | 2017-10-19 12:33 | Orthopedic Progress Note ---
Subjective Patient information: Note initiated : 10/19/17 at 12:30 pm Service Date, if different from initiated Date: [] Patient: Asa Green 52 y/o M admitted on 10/17/17 for Intractable Lumbar Back Pain with Muscle Spasm. Chief Complaint: [] generally no complaints, pain is well controlled. Principal diagnosis: severe foraminal stenosis Objective Vital signs: Vital Signs Temp Pulse Pulse Resp BP Pulse Ox 10/19/17 09:00 14 97 10/19/17 08:00 14 10/19/17 07:55 99.5 F H 82 14 119/74 96 10/19/17 07:48 14 95 10/19/17 07:00 14 10/19/17 06:00 14 10/19/17 05:48 78 12 97 10/19/17 04:00 18 10/19/17 03:54 99.4 F H 76 18 123/87 97 10/19/17 03:30 18 10/19/17 03:10 99.2 F H 78 18 127/79 93 10/19/17 02:30 18 10/19/17 02:15 18 10/19/17 00:42 81 16 97 10/18/17 23:58 81 130/81 98 10/18/17 23:43 93 H 18 117/80 94 10/18/17 23:14 99.2 F H 103 H 123/82 10/18/17 22:43 97 H 18 123/82 99 10/18/17 22:41 99 10/18/17 22:28 93 H 18 130/73 95 10/18/17 21:58 82 18 139/76 100 10/18/17 21:50 99.4 F H 75 20 134/91 98 10/18/17 21:43 99.4 F H 95 H 18 130/85 97 10/18/17 21:29 98.6 F 82 14 130/85 99 10/18/17 21:17 89 11 L 154/89 96 10/18/17 21:02 85 14 144/75 96 10/18/17 20:47 85 14 125/83 100 10/18/17 20:32 98.6 F 77 14 142/92 98 10/18/17 20:27 75 14 140/81 99 10/18/17 20:22 81 14 107/73 96 10/18/17 20:17 98.5 F 76 16 116/78 98 Intake and Output 10/18/17 10/19/17 10/19/17 21:59 05:59 13:59 Intake Total 2300 / 2300 1311 / 1311 Output Total 150 / 150 505 / 505 60 / 60 Balance 2150 / 2150 806 / 806 -60 / -60 Intake: IV 100 / 100 971 / 971 Sodium Chloride 0.9% 1,000 ml @ 971 / 971 125 mls/hr IV .Q8H [facility] Rx#: [id number] Oral 340 / 340 IV - Manual Only 2200 / 2200 Output: Drainage 30 / 30 60 / 60 Lower Back 30 / 30 60 / 60 Urine Catheter Amount 475 / 475 Estimated Blood Loss 150 / 150 Other: Weight 201 lb 8 oz Intake & Output: Intake & Output 10/18/17 10/19/17 10/19/17 21:59 05:59 13:59 Intake Total 2300 / 2300 1311 / 1311 Output Total 150 / 150 505 / 505 60 / 60 Balance 2150 / 2150 806 / 806 -60 / -60 Weight 201 lb 8 oz Intake: IV 100 / 100 971 / 971 Sodium Chloride 0.9% 1,000 ml @ 971 / 971 125 mls/hr IV .Q8H [facility] Rx#: [id number] Oral 340 / 340 IV - Manual Only 0 / 0 Output: Drainage 30 / 30 60 / 60 Lower Back 30 / 30 60 / 60 Urine Catheter Amount 475 / 475 Estimated Blood Loss 150 / 150 Dressing: Yes clean, Yes dry, Yes intact Neurological exam IM: Yes neurovascular intact - Labs CBC & BMP: 10/19/17 03:55 10/19/17 03:55 Labs: 10/19/17 10/16/17 03:55 03:45 Hgb 13.2 L 15.3 Hct 37.5 L 44.0 Assessment and Plan (1) Lumbar disc herniation with radiculopathy status post XLIF with posterior decomp and fusion yesterday. 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 will keep flat x 24 hours Status: Suspected
--- NOTE | 2017-10-19 12:49 | Event Note ---
Patient post op, s/p back surgery, post op pain managed by ortho Pt has h/o HTN, bp stable on present regime No active medical condition, case discussed with ortho, Will sign off service, discharge as per ortho Should condition change and medical intervention be needed, please do not hesitate to contact back.
[2017-10-19] MEDS: METHOCARBAMOL 750 MG TABLET PO PRN ×2 (13:13→20:11)
[2017-10-19] MEDS: GABAPENTIN 300 MG CAPSULE PO SCH (13:13)
[2017-10-19] MEDS: OMEPRAZOLE 20 MG CAPSULE PO SCH (16:47)
[2017-10-19] MEDS: ASPIRIN 81 MG TAB.CHEW PO SCH (16:47)
[2017-10-19] MEDS: DOCUSATE SODIUM 100 MG CAPSULE PO SCH ×2 (16:47→20:11)
[2017-10-19] MEDS: MULTIVIT,THER IRON,CA,FA & MIN 1 TABLET PO SCH (16:48)
[2017-10-19] MEDS: CLOTRIMAZOLE CRM 1% 1 DOSE TUBE TOPICAL SCH ×3 (16:48→20:19)
[2017-10-19] MEDS: LOSARTAN 50 MG TABLET PO SCH (16:48)
[2017-10-19] MEDS: FLUTICASONE PROPIONATE SPRAY.NAS NS SCH ×2 (16:48→20:16)
[2017-10-19] MEDS: SENNOSIDES 1 TABLET PO SCH (20:11)
[2017-10-20] MEDS: HYDROcodone/APAP 10/325MG TABLET PO PRN ×7 (00:08→23:58)
[2017-10-20] MEDS: 0.9 % SODIUM CHLORIDE 1,000 ML IV SCH ×2 (02:06→07:00)
[2017-10-20] MEDS: METHOCARBAMOL 750 MG TABLET PO PRN ×2 (03:50→11:14)
[2017-10-20] MEDS: ceFAZolin 1 GM VIAL IV SCH ×3 (03:54→20:19)
[2017-10-20] MEDS: 0.9 % SODIUM CHLORIDE 10 ML SYRINGE IV SCH ×3 (07:01→20:20)
[2017-10-20] MEDS: OMEPRAZOLE 20 MG CAPSULE PO SCH (07:58)
[2017-10-20] MEDS: GABAPENTIN 300 MG CAPSULE PO SCH (08:43)
[2017-10-20] MEDS: DOCUSATE SODIUM 100 MG CAPSULE PO SCH ×2 (08:43→20:21)
[2017-10-20] MEDS: LOSARTAN 50 MG TABLET PO SCH (08:43)
[2017-10-20] MEDS: ASPIRIN 81 MG TAB.CHEW PO SCH (08:43)
[2017-10-20] MEDS: MULTIVIT,THER IRON,CA,FA & MIN 1 TABLET PO SCH (08:44)
[2017-10-20] MEDS: FLUTICASONE PROPIONATE SPRAY.NAS NS SCH ×2 (08:44→20:21)
--- NOTE | 2017-10-20 12:24 | Orthopedic Progress Note ---
Subjective Patient information: Note initiated : 10/20/17 at 12:23 pm Service Date, if different from initiated Date: [] Patient: Asa Green 52 y/o M admitted on 10/17/17 for Intractable Lumbar Back Pain with Muscle Spasm. Chief Complaint no complaints, pt has been up without complaint. Principal diagnosis: severe foraminal stenosis Objective Vital signs: Vital Signs Temp Pulse Pulse Resp BP Pulse Ox 10/20/17 11:57 99.1 F H 94 H 16 117/81 94 10/20/17 08:00 16 93 10/20/17 07:35 99 F 66 16 117/67 93 10/20/17 03:55 12 10/20/17 03:15 99.1 F H 73 12 112/79 96 10/19/17 23:45 98.7 F 81 12 117/73 95 10/19/17 19:10 98.2 F 63 12 122/78 97 10/19/17 16:35 16 97 10/19/17 16:00 98.8 F 70 16 106/51 97 10/19/17 14:00 96 10/19/17 13:00 97 Intake and Output 10/19/17 10/20/17 10/20/17 21:59 05:59 13:59 Intake Total 1999 1350 / 1350 192 / 1919 Output Total 3335 / 3335 1405 / 1405 1270 / 1270 Balance -1335 / -1335 -55 / -55 650 / 650 Intake: IV 1000 / 1000 Sodium Chloride 0.9% 1,000 ml @ 1000 / 1000 125 mls/hr IV .Q8H [facility] Rx#: [id number] Oral 1999 350 / 350 1919 Output: Drainage 110 / 110 55 / 55 20 / 20 Lower Back 110 / 110 55 / 55 20 / 20 Urine Catheter Amount 3225 / 3225 1350 / 1350 400 / 400 Void Amount 850 / 850 Other: Meal Dinner Breakfast Percent of Meal Consumed 25% 100% Feeding Ability Assist with Tray Set Up Weight 207 lb 8 oz Intake & Output: Intake & Output 10/19/17 10/20/17 10/20/17 21:59 05:59 13:59 Intake Total 1999 1350 / 1350 1919 Output Total 3335 / 3335 1405 / 1405 1270 / 1270 Balance -1335 / -1335 -55 / -55 650 / 650 Weight 207 lb 8 oz Intake: IV 1000 / 1000 Sodium Chloride 0.9% 1,000 ml @ 1000 / 1000 125 mls/hr IV .Q8H [facility] Rx#: [id number] Oral 1999 350 / 350 1920 / 1920 Output: Drainage 110 / 110 55 / 55 20 / 20 Lower Back 110 / 110 55 / 55 20 / 20 Urine Catheter Amount 3225 / 3225 1350 / 1350 400 / 400 Void Amount 850 / 850 Other: Meal Dinner Breakfast Percent of Meal Consumed 25% 100% Feeding Ability Assist with Tray Set Up Dressing: Yes clean, Yes dry, Yes intact Neurological exam IM: Yes neurovascular intact - Labs CBC & BMP: 10/20/17 03:55 10/19/17 03:55 Labs: 10/20/17 10/19/17 10/16/17 03:55 03:55 03:45 Hgb 12.4 L 13.2 L 15.3 Hct 36.0 L 37.5 L 44.0 Assessment and Plan (1) Lumbar disc herniation with radiculopathy status post XLIF with posterior decomp and fusion yesterday. 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 will keep flat x 24 hours drain out has mobilized Status: Suspected
[2017-10-20] MEDS: CLOTRIMAZOLE CRM 1% 1 DOSE TUBE TOPICAL SCH ×4 (13:48→20:21)
[2017-10-20] MEDS: POLYETHYLENE GLYCOL 3350 17 GM PACKET PO PRN (14:11)
--- NOTE | 2017-10-20 19:36 | XRay Report ---
CLINICAL INFORMATION: Reason for Exam:L3-4 DECOMPRESSION FUSION COMPARISON: None. FINDINGS: Multiple digital images from the OR show pre-existing L4-5 anterior/posterior fusion provided by pedicle screws, short struts and interbody graft. The final images show the pedicle screws and struts to be absent Final images also short interbody graft or spacer at L3-4 with a single pedicle screw at L3. IMPRESSION: Digital images from the OR as described Interpreted and Authenticated by: Azar Robertson 10/20/17
[2017-10-20] MEDS: SENNOSIDES 1 TABLET PO SCH (20:20)
[2017-10-21] MEDS: HYDROcodone/APAP 10/325MG TABLET PO PRN ×3 (03:05→11:29)
[2017-10-21] MEDS: 0.9 % SODIUM CHLORIDE 10 ML SYRINGE IV SCH ×3 (03:06→12:36)
[2017-10-21] MEDS: ceFAZolin 1 GM VIAL IV SCH ×2 (03:06→12:36)
[2017-10-21] MEDS: OMEPRAZOLE 20 MG CAPSULE PO SCH (07:09)
[2017-10-21] MEDS: LOSARTAN 50 MG TABLET PO SCH (08:57)
[2017-10-21] MEDS: MULTIVIT,THER IRON,CA,FA & MIN 1 TABLET PO SCH (08:57)
[2017-10-21] MEDS: ASPIRIN 81 MG TAB.CHEW PO SCH (08:57)
[2017-10-21] MEDS: METHOCARBAMOL 750 MG TABLET PO PRN (08:57)
[2017-10-21] MEDS: DOCUSATE SODIUM 100 MG CAPSULE PO SCH (08:57)
[2017-10-21] MEDS: GABAPENTIN 300 MG CAPSULE PO SCH (08:57)
[2017-10-21] MEDS: CLOTRIMAZOLE CRM 1% 1 DOSE TUBE TOPICAL SCH ×2 (08:58→15:43)
[2017-10-21] MEDS: FLUTICASONE PROPIONATE SPRAY.NAS NS SCH (08:58)
[2017-10-21] MEDS: POLYETHYLENE GLYCOL 3350 17 GM PACKET PO PRN (08:58)
--- NOTE | 2017-10-21 09:13 | Operative Note ---
DATE OF OPERATION: 10/18/2017 PREOPERATIVE DIAGNOSIS: Advanced disk collapse L3-4 with transitional breakdown. This is above a fusion. There is some discussion about numbering and this level could also be called L4-5. Nonetheless, it is immediately above his fusion where he has advanced disk collapse, severe neural foraminal stenosis and instability. POSTOPERATIVE DIAGNOSIS: Advanced disk collapse L3-4 with transitional breakdown. This is above a fusion. There is some discussion about numbering and this level could also be called L4-5. Nonetheless, it is immediately above his fusion where he has advanced disk collapse, severe neural foraminal stenosis and instability. CSF fistula. OPERATION PROPOSED: 1. Anterior interbody fusion via lateral retroperitoneal approach L3-4 with application of prosthetic device interbody space L3-4. 2. Posterior Lumbar decompression with decompressed central canal, lateral recess, and neural foramen. 3. Removal of nonsegmental instrumentation with revision and extension of instrumentation L3 through L5. 4. posterior/posterolateral fusion L3-4. OPERATION PERFORMED: 1. Anterior interbody fusion via lateral retroperitoneal approach L3-4 with application of prosthetic device interbody space L3-4. 2. Posterior Lumbar decompression with decompressed central canal, lateral recess, and neural foramen. 3. Removal of nonsegmental instrumentation with revision and extension of instrumentation L3 through L5. 4. posterior/posterolateral fusion L3-4. 5. Repair of dura. SURGEON: Lauro Roman MD OPERATIVE FINDINGS: On exploring the posterior wound, we dissected down along the hardware and even dorsal to the hardware on the right there was a CSF that welled up around the hardware. On further inspection, there was a fistula that extended toward the hardware. We debrided the posterior lamina and facet joint and followed this down and there was evidence of a CSF leak in the lateral recess that tracked all the way up in and around the CSF to track dorsally around the hardware. There was extensive facet debris and facet cystic material into the neural foramen that was debrided. OPERATION IN DETAIL: Informed consent was obtained. He was taken to the operative room and given appropriate anesthetic and prophylactic antibiotics. He was carefully positioned. His flank was prepped sterilely. A retroperitoneal approach was performed and I dissected into the retroperitoneal space and advanced through the psoas musculature using a dilating trocar and EMG monitoring. I sequentially dilated and placed self-retaining retractor. I incised the annulus. I then extensively curetted the disk space debriding down to subchondral bone. I trialled several different sizes and distracted the disk space. I ultimately selected a 10 x 22 x 55 mm X lift cage from [employer]. This was filled with morcellized bone graft and impacted into the site prepared for it. I then turned the patient in the prone position. A midline incision was made. I actually ellipsed out a portion of his old scar. I dissected down to expose spinous process and lamina L3 and dissected down in the midline at his lower levels. I turned laterally and exposed the hardware on the left and on the right. When exposing the dorsal aspect of the right L4 screw there was CSF surrounding the screw. Even when curetting down on the top of the locking cap it was evident that there was CSF bathing this hardware on the right. We went ahead and exposed the hardware, debrided of soft tissue and removed the hardware. I then removed a significant portion of the spinous process and lamina of L3 and the upper portion of L4. I essentially removed the facet joint on this right side, followed the nerve root out and debrided through scar to identify from where this CSF was leaking. There was an area in the lateral recess that had an obvious dural defect. I tried to free up the edges of this. I had been using the operating microscope to define this. I used a 2-0 silk and closed the dural defect. Valsalva showed no leaking. I covered this with Tisseel. I placed posterior instrumentation. I advanced a gearshift awl cannulating the pedicle at L3 bilaterally. I tapped and placed an appropriate length pedicle screw at L3. I placed new pedicle screws and the screw holes at L4 and L5 on the left and only at the L5 level on the right. I had irrigated extensively, I decorticated the posterolateral aspect of the spine, this being the transverse process, pars interarticularis and facet joints. I packed morcellized graft into and against the decorticated posterolateral aspect of the spine to allow for fusion. I compressed across the interbody graft. A jaimie was tightened and torqued into the top loading pedicle screws. I closed over a deep drain with an 0 Vicryl in interrupted fashion, 2-0 Vicryl inverted deep dermal, and running subcuticular. The procedure was tolerated well. No complications. Estimated blood loss is 300 mL. KENNETH:hui Job ID: [id number] Doc ID: [id number] Lauro Roman MD
--- NOTE | 2017-10-21 12:44 | Discharge Summary ---
Providers - Providers Patient information: Note initiated : 10/21/17 at 12:41 pm Service Date, if different from initiated Date: [] Patient: Asa Green 52 y/o M admitted on 10/17/17 for Intractable Lumbar Back Pain with Muscle Spasm. Chief Complaint: [] Date of admission: 10/15/17 Discharge date: 10/21/17 Attending physician: Lauro Roman Hospitalization Hospital course: lumbar fusion Discharge diagnosis: spinal stenosis Ortho Discharge - Spine - Patient Instructions Discharge Diet: Regular Diet Activity: activity as tolerated Spine Protocol: Limit bending and stooping. No heavy lifting. Wear brace/collar at all times except when showering and sleeping. Dressing Care: May shower in 2 days Additional Dressing Instructions: May Shower 48 hours post-operative and replace with dry dressing after shower. Patient Education: Chronic Back Pain (ED) Additional Instructions: A physical therapy prescription has been completed for you. Call physical therapist of your choice and follow-up with him as soon as possible. Take the prescription with you. Robaxin: 1 tab orally every 8 hours as needed for muscle spasm. Hydrocodone: 1 tab orally every 6 hours as needed for pain. Do not drive, operate machinery, or drink alcohol while taking this medication. Alternate heat and ice to the affected area 4-6 times a day for 15 minutes at a time over the next 2 days. Follow-up with your primary care provider or orthopedic provider within the next few days for follow-up. - Problem Maintenance (1) Lumbar disc herniation with radiculopathy Status: Suspected - Follow Up Plan Follow Up Appointments: Lauro Roman MD [Physician] - Elijah Kirby MD [Primary Care Provider] - Disposition: Home, Self-Care Prognosis: Good Rehab Potential: Good I certify that the patient requires SNF services: No Overall status at discharge: patient is progressing back to baseline - Orders For Discharge Prescriptions: Hydrocodone/APAP 7.5/325Mg [[place] 7.5-325Mg] 1 - 2 tab PO Q6HP PRN #20 tab PRN Reason: Pain Methocarbamol [Robaxin-750] 750 mg PO TID PRN #30 tab PRN Reason: Muscle Spasm Pending Studies Resuscitation Status Full Code Diet Regular Diet Start SatOct 18 Breakfast Hydrocodone Bitart/Acetaminophen ([place] 10/325mg) 1 - 2 tab PO Q4HP PRN PRN Reason: PAIN LEVEL 3-6 Last Admin: 10/21/17 11:29 Dose: 1 tab Admin: 10/21/17 07:14 Dose: 1 tab Admin: 10/21/17 03:05 Dose: 1 tab Admin: 10/20/17 23:58 Dose: 1 tab Admin: 10/20/17 20:21 Dose: 1 tab Admin: 10/20/17 15:52 Dose: 2 tab Admin: 10/20/17 11:52 Dose: 2 tab Admin: 10/20/17 07:59 Dose: 2 tab Admin: 10/20/17 03:50 Dose: 1 tab Admin: 10/20/17 00:08 Dose: 1 tab Admin: 10/19/17 20:10 Dose: 1 tab Admin: 10/19/17 17:13 Dose: 1 tab Admin: 10/19/17 13:12 Dose: 1 tab Admin: 10/19/17 04:44 Dose: 2 tab Admin: 10/18/17 21:56 Dose: 2 tab Aspirin (Aspirin) 81 mg PO DAILY [facility] Last Admin: 10/21/17 08:57 Dose: 81 mg Admin: 10/20/17 08:43 Dose: 81 mg Admin: 10/19/17 16:47 Dose: Not Given Cefazolin Sodium (Ancef) 2 gm IV Q8H [facility] Last Admin: 10/21/17 12:36 Dose: 2 gm Admin: 10/21/17 03:06 Dose: 2 gm Admin: 10/20/17 20:19 Dose: 2 gm Admin: 10/20/17 13:48 Dose: 2 gm Admin: 10/20/17 03:54 Dose: 2 gm Admin: 10/19/17 19:58 Dose: 2 gm Clotrimazole (Mycelex Crm 1%) 1 dose TOPICAL TID [facility] Last Admin: 10/21/17 08:58 Dose: 1 dose Admin: 10/20/17 20:21 Dose: 1 dose Admin: 10/20/17 15:30 Dose: 1 dose Admin: 10/20/17 13:48 Dose: Not Given Admin: 10/19/17 20:19 Dose: 1 dose Admin: 10/19/17 19:04 Dose: Not Given Admin: 10/19/17 16:48 Dose: Not Given Diazepam (Valium) 5 - 10 mg PO Q6HP PRN PRN Reason: Back Spasms Last Admin: 10/19/17 04:45 Dose: 5 mg Admin: 10/19/17 00:23 Dose: 5 mg Admin: 10/18/17 21:56 Dose: 5 mg Docusate Sodium (Colace) 100 mg PO BID [facility] Last Admin: 10/21/17 08:57 Dose: 100 mg Admin: 10/20/17 20:21 Dose: 100 mg Admin: 10/20/17 08:43 Dose: 100 mg Admin: 10/19/17 20:11 Dose: 100 mg Admin: 10/19/17 16:47 Dose: Not Given Fentanyl (Sublimaze) 25 mcg IV Q1HP PRN PRN Reason: Pain uncontrolled with po Last Admin: 10/19/17 00:35 Dose: 25 mcg Admin: 10/18/17 23:25 Dose: 25 mcg Admin: 10/18/17 22:10 Dose: 25 mcg Fluticasone Propionate (Flonase) 1 spray NS BID [facility] Last Admin: 10/21/17 08:58 Dose: Not Given Admin: 10/20/17 20:21 Dose: Admin: 10/20/17 08:44 Dose: Not Given Admin: 10/19/17 20:16 Dose: Admin: 10/19/17 16:48 Dose: Not Given Gabapentin (Neurontin) 300 mg PO DAILY [facility] Last Admin: 10/21/17 08:57 Dose: 300 mg Admin: 10/20/17 08:43 Dose: 300 mg Admin: 10/19/17 13:13 Dose: 300 mg Iron Carb/Multivit/System Planning Engineer/Folic Acid (Multivitamin W/Minerals) 1 tab PO DAILY [facility] Last Admin: 10/21/17 08:57 Dose: 1 tab Admin: 10/20/17 08:44 Dose: 1 tab Admin: 10/19/17 16:48 Dose: Not Given Losartan Potassium (Cozaar) 50 mg PO QDAY [facility] Last Admin: 10/21/17 08:57 Dose: 50 mg Admin: 10/20/17 08:43 Dose: 50 mg Admin: 10/19/17 16:48 Dose: Not Given Methocarbamol (Robaxin) 750 mg PO Q6HP PRN PRN Reason: Muscle Spasm Last Admin: 10/21/17 08:57 Dose: 750 mg Admin: 10/20/17 11:14 Dose: 750 mg Admin: 10/20/17 03:50 Dose: 750 mg Admin: 10/19/17 20:11 Dose: 750 mg Admin: 10/19/17 13:13 Dose: 750 mg Omeprazole (Prilosec) 20 mg PO QAMAC [facility] Last Admin: 10/21/17 07:09 Dose: 20 mg Admin: 10/20/17 07:58 Dose: 20 mg Admin: 10/19/17 16:47 Dose: Not Given Polyethylene Glycol (Miralax) 17 gm PO DAILYP PRN PRN Reason: Constipation Last Admin: 10/21/17 08:58 Dose: 17 gm Admin: 10/20/17 14:11 Dose: 17 gm Senna (Senokot) 2 tab PO HS [facility] Last Admin: 10/20/17 20:20 Dose: 2 tab Admin: 10/19/17 20:11 Dose: 2 tab Admin: 10/18/17 22:35 Dose: Sodium Chloride (Saline Flush) 10 ml IV Q8 [facility] Last Admin: 10/21/17 12:36 Dose: 10 ml Admin: 10/21/17 07:09 Dose: 10 ml Admin: 10/21/17 03:06 Dose: 10 ml Admin: 10/20/17 20:20 Dose: 10 ml Admin: 10/20/17 13:49 Dose: 10 ml Admin: 10/20/17 07:01 Dose: Not Given Admin: 10/19/17 22:04 Dose: Not Given Admin: 10/19/17 16:49 Dose: Not Given Admin: 10/19/17 05:58 Dose: Not Given Admin: 10/18/17 22:04 Dose: Not Given Shift Summary 10/21/17 03:45 Shift Summary by Josh Zepeda Pt has rested on & off tonight. His back pain well controlled w/ [place] 10 (1) PO Q3-4 hrs - last dose @ 0305. PO Robaxin given last @ 2029. Saline lock to his LT F/A - flushed & patent - sl tender w/ flushes - no redness or swelling. Mid low back & LT hip/flank dressings - C,D,I. Pt is up AMB in RM & out in [place] (I) w/ FWW & back brace - gait stable. He is voiding QS per urinal - no BM as yet. VS - WNL on R.A.. He is calm, pleasant, & cooperative. Initialized on 10/21/17 03:45 - END OF NOTE
--- NOTE | 2017-10-21 14:46 | Ultrasound Report ---
CLINICAL INFORMATION: Bilateral calf pain COMPARISON: None. FINDINGS: The entire deep venous system , both lower extremities, including the common femoral, superficial femoral, popliteal and paired trifurcation calf veins are easily compressible and show normal venous blood flow on color and spectral Doppler. No evidence of thrombus IMPRESSION: Negative exam - no evidence of deep vein thrombosis in either lower extremity. Interpreted and Authenticated by: Azar Robertson 10/21/17
== END 2017-10-21 17:18 | disposition home or self-care (01) | DRG 460 ==
LOC: MEDSUR 14:17 → ED 14:17 → MEDSUR 21:40
PROVIDERS: ADMIT Family Medicine; ATTEND Family Medicine